=== PATIENT | female | born 1965 | race Caucasian/White ===

== ENCOUNTER 2019-02-01 13:20 | Emergency (ER) | payer OTHER ==
[~2019-02-01] VITALS: Ht 162.6 cm; Wt 102.1 kg
[~2019-02-01 13:20] MED LIST: ACETAMINOPHEN-1 EAC1 PO; ALEVE220 MG; APAP500 PO; ATIVAN0.5 MG PO; ATORVASTATIN CA40 MG PO; AUGMENTIN 875875 M1 PO; BENADRYL25 MG PO; CIPROFLOXACIN500 M1 PO; CLOTRIMAZOLE 1%15 G1; COLACE100 MG; COUMADIN; COUMADIN 2 MG TA2 M1 PO; COUMADIN 5 MG TA5 M1 PO; FAMVIR250 MG PO; FLONASE; FLONASE 0.05%50 MCG NASAL; FLONASE16 GM; FOLIC ACID1 MG PO; GABAPENTIN PO; GLIPIZIDE XL5 MG PO; GLUCOTROL5 MG PO; IRON325 PO; JANUMET 50-1,01 EACH PO; KEFLEX500 MG PO; LASIX 40 MG TAB40 M2 PO; LEVAQUIN 500 M500 M1 PO; LEVAQUIN PO; LIPITOR 20 MG T20 M1 PO; LISINOPRIL40 MG PO; LOVENOX INJ; LOVENOX SC; NASONEX17 GM; NASONEX17 GM INH; NORCO 5-325 TA1 EACH PO; NORVASC 5 MG TAB5 MG PO; OMEPRAZOLE 20 M20 MG; OMEPRAZOLE20 M1 PO; OXYCODONE HCL5 M1 PO; OXYCONTIN15 MG PO; PAMELOR; PERCOCET 5-3251 EACH; PERCOCET 5-3251 EACH PO; PHENTERMINE H37.5 MG PO; PREDNISONE50 MG PO; SEASONALE1 EACH; SENOKOT-S1 TA1 PO; SPRINTEC1 EACH; TRAMADOL 50 MG50 MG PO; TRANDATE 200 M200 M1 PO; XANAX 0.25 MG0.25 MG PO; ZOCOR40 MG; ZOFRAN ODT4 MG PO; ZOFRAN4 MG PO; ZYRTEC PO; ZYRTEC-D TABLE1 EAC1
[2019-02-01] MEDS ORDERED: METFORMIN HCL500 MG PO (13:35)
[2019-02-01] MEDS ORDERED: COZAAR 25 MG TA25 M1 PO (13:36)
[2019-02-01] MEDS ORDERED: CENTANY30 GM TOP (15:17)
[2019-02-01] MEDS ORDERED: ZANAFLEX4 MG PO (15:17)
[2019-02-01 15:29] VITALS: BP 147/83
== END 2019-02-01 15:30 | disposition home or self-care (01) ==
LOC: M.ERS 13:20
DX: S00.83XA Contusion of other part of head, initial encounter (principal); S80.02XA Contusion of left knee, initial encounter; S60.221A Contusion of right hand, initial encounter; S60.222A Contusion of left hand, initial encounter; E11.9 Type 2 diabetes mellitus without complications; I10 Essential (primary) hypertension; E78.5 Hyperlipidemia, unspecified; K21.9 Gastro-esophageal reflux disease without esophagitis; Z90.89 Acquired absence of other organs; Z90.81 Acquired absence of spleen; Z90.49 Acquired absence of other specified parts of digestive tract; Z90.711 Acquired absence of uterus with remaining cervical stump; Z91.030 Bee allergy status; Z88.2 Allergy status to sulfonamides; Z91.040 Latex allergy status; Z91.048 Other nonmedicinal substance allergy status; Z88.1 Allergy status to other antibiotic agents; Z88.8 Allergy status to other drugs, medicaments and biological substances; W17.89XA Other fall from one level to another, initial encounter; Y92.89 Other specified places as the place of occurrence of the external cause; Y93.89 Activity, other specified; Y99.8 Other external cause status